=== PATIENT | female | born 1955 | race Caucasian/White ===

== ENCOUNTER → 2020-04-23 | Outpatient (CLI) | payer MEDICARE, MEDICAID ==
--- NOTE | 2020-04-26 11:03 | MRI ---
EXAM DESCRIPTION: Lumbar Spine w/o Contrast : Magnetic Resonance Imaging. CLINICAL HISTORY: BACK PAIN COMPARISON: Lumbar radiographs December 15. TECHNIQUE: Multiplanar, multiple standard sequences, non contrast MRI, lumbar spine. FINDINGS: L5-S1: The disc is well visualized on axial T2 series 501, image 3. Mild disc desiccation. Minimal posterior midline bulge with bilateral intraforaminal bulge more right than left with mild to moderate narrowing of the foramina. Hypertrophic changes in the facet joints and posterior flavum ligaments (canal elements). Mild narrowing of the canal. At least 50% compression of the anterior and posterior cortex of the T10 vertebral body with approximately 75% compression centrally. Hyperintense FLAIR signal throughout the vertebral body indicating marrow edema in recent injury which is also involving the right lamina and the left pedicle. 2 mm retropulsion of the inferior endplate. Question of hyperintense STIR signal in the right side of the cord at this level. No soft tissue or fluid mass in the canal at this level. Minimal soft tissue edema. Minimal desiccation of the T9-T10 disc which is migrating into the collapsed superior T10 endplate. No significant posterior bulging. Bilateral mild to moderate foraminal narrowing. T11 hyperintense STIR signal in the left pedicle laminar junction and in the base of the right pedicle extending into the base of the lamina. This is hypointense on T1 signal and hyperintense on T2. Consistent with contusion. Anterior and posterior vertebral body with similar focal subcortical signal. Posterior bulge of the T10-T11 disc abutting the cord. Superior migration of the disc into the concavity of the T10 inferior vertebral body endplate. Bilateral T10-T11 foramina are stenotic. T12 vertebral body with central compression deformity of at least 50% with hypointense signal in the anterior vertebral body on all sequences suggesting augmentation cement. Not seen in the disc space. Not present on the radiographs from December. Hyperintense T2 and STIR signal in the vertebral body surrounding the cement. Minimal retropulsion of the inferior endplate which is concave. Normal signal in the T12-L1 disc with posterior midline bulge but no cord compression. Significant narrowing of the bilateral foramina, but no nerve impingement. L4-L5: Disc desiccation and disc space loss more severe on left with irregular concavities and small Schmorl's nodes. Moderate endplate reactive changes in the midline and left. Disc osteophyte complex encroaching on the left foramen and left L4 nerve. Moderate narrowing of the right foramen. Hypertrophic changes in the canal elements with AP canal diameter 8.3 mm. L3-L4: Minimal disc desiccation with small concavities in the endplates. Posterior disc space loss and moderate endplate reactive changes. Hypertrophic changes in the canal elements. AP canal diameter 10 mm. Mild narrowing of the left foramen moderate narrowing of the right foramen. L2-L3: Disc desiccation with central calcification/gas. Superior and inferior Schmorl's nodes and moderate endplate reactive changes posterior. Posterior broad-based bulge. Hypertrophic changes in the canal elements. AP canal diameter 9 mm. Bilateral moderate foraminal narrowing. L1-L2: Disc normal signal and disc space preserved. Trace posterior and anterior bulging. Hypertrophic changes in the canal elements but no significant canal narrowing. Bilateral foramina are patent. T12- L3 levoscoliosis. Paravertebral soft tissues paravertebral muscle atrophy.. Distal cord otherwise normal signal except as previously described. Heterogeneous marrow signal in the remaining vertebral bodies and the posterior elements. IMPRESSION: 1. Multiple levels of disc desiccation, endplate changes, hypertrophy of the posterior flavum ligaments and facet joints and canal and foraminal narrowing. 2. Central compression of the T10 vertebral body not seen on the prior study. Also marrow edema reflecting injury in the right lamina and left pedicle. 10 mm retropulsion of the inferior endplate. Mild to moderate narrowing of the T9-T10 foramina with no significant posterior disc bulging. Marrow edema in the midline and left side cord indicating contusion. No cord compression or epidural fluid. Soft tissue edema. 3. Marrow edema indicating injury in the left T11 pedicle and at the base of the right pedicle. Bilateral stenosis of the T10-T11 foramina and moderate canal narrowing. Minimal posterior disc bulge. 4. At least 50% compression deformity of the T12 central and anterior vertebral body with augmentation. These changes not present on the prior study. Residual marrow edema in the posterior vertebral body but not in the posterior elements. T12-L1 disc desiccation and minimal bulging with moderate narrowing of the canal and foramina. 5. Disc osteophyte complex on the left at L4-L5 with moderate endplate reactive changes resulting in encroachment on the left L4 nerve and stenosis. Mild to moderate canal stenosis. Borderline mild central canal stenosis L3-L4 is multifactorial. Mild central canal stenosis multifactorial at L2-L3. Please see above FINDINGS for discussion at other levels. Electronically signed by: Luis Hodgson MD 04/26/2020 11:01 AM CDT
== END ==
LOC: MRI 10:51
PROVIDERS: ATTEND Neurological Surgery
DX: M51.35 Other intervertebral disc degeneration, thoracolumbar region (principal); M51.36 Other intervertebral disc degeneration, lumbar region; M48.54XA Collapsed vertebra, not elsewhere classified, thoracic region, initial encounter for fracture; M51.24 Other intervertebral disc displacement, thoracic region; M48.062 Spinal stenosis, lumbar region with neurogenic claudication; M48.04 Spinal stenosis, thoracic region; M51.84 Other intervertebral disc disorders, thoracic region; M46.96 Unspecified inflammatory spondylopathy, lumbar region; M24.28 Disorder of ligament, vertebrae; R60.9 Edema, unspecified; M25.78 Osteophyte, vertebrae

== ENCOUNTER 2020-06-24 10:51 | Emergency (ER) | payer MEDICARE, OTHER ==
--- NOTE | 2020-06-24 12:05 | RAD ---
EXAM DESCRIPTION: Chest,1 View CLINICAL HISTORY: myalgias, fever, left lower ant chest point pain FINDINGS/ IMPRESSION: Normal heart size. Atherosclerotic aorta No edema, infiltrates or effusions. Small linear band of opacity left lung base likely atelectasis or scar No pneumothorax. No acute bony abnormality Electronically signed by: Jerry Rodríguez MD 06/24/2020 12:03 PM CDT
--- NOTE | 2020-06-24 12:09 | CT ---
EXAM DESCRIPTION: CT head CLINICAL HISTORY: Headache. Fall injuries COMPARISON: None. TECHNIQUE: Noncontrast spiral CT of the brain. This exam was performed according to our departmental dose-optimization program, which includes automated exposure control, adjustment of the mA and/or kV according to patient size and/or use of iterative reconstruction technique FINDINGS: Severe white matter disease with decreased density in the bilateral cerebral hemispheres asymmetrically greater on the left. Cerebral and cerebellar volume loss with prominence of the cortical sulci and ventricular system. Atherosclerotic vascular calcifications in the vertebral arteries and cavernous carotid arteries No intracranial hemorrhage or mass lesion No calvarial or skull base injury IMPRESSION: Severe nonspecific white matter disease likely chronic microvascular ischemia. Senescent brain. No diagnostic acute traumatic brain injury CT is insensitive for early evaluation of acute stroke. If there is clinical concern for acute ischemia, an MRI may be considered. Electronically signed by: Jerry Rodríguez MD 06/24/2020 12:07 PM CDT
--- NOTE | 2020-06-24 12:17 | CT ---
TECHNIQUE: Spiral CT images were obtained of the cervical spine. Sagittal and coronal reconstructions were also performed. This exam was performed according to our departmental dose-optimization program, which includes automated exposure control, adjustment of the mA and/or kV according to patient size and/or use of iterative reconstruction technique. CLINICAL HISTORY PROVIDED: falls, headache COMPARISON: None available. FINDINGS: Alignment: Normal. No acute subluxation. Fracture: No acute fracture. Degenerative Changes: Multilevel degenerative changes are present. Prevertebral / Paraspinal Soft Tissues: Unremarkable. IMPRESSION: No acute fracture or subluxation. Electronically signed by: Dilip Kaur MD 06/24/2020 12:16 PM CDT
--- NOTE | 2020-06-24 13:15 | RAD ---
EXAM DESCRIPTION: Hip,Left 2 Views CLINICAL HISTORY: Left hip pain. Fall injury FINDINGS/ IMPRESSION: Nonspherical femoral head neck junction predisposing to femoroacetabular impingement. No fracture of the femur or pelvis. Rounded lucency in the medial femoral head neck junction measuring about 2 cm. Sclerotic periphery. Seen on both frog-leg and AP radiographs. Recommend CT for better characterization. This could be a degenerative cyst or other lytic lesion, possibly fibrous given the fairly well circumscribed sclerotic periphery No other lytic or blastic bony lesion Electronically signed by: Jerry Rodríguez MD 06/24/2020 1:13 PM CDT
--- NOTE | 2020-06-24 14:28 | CT ---
EXAM DESCRIPTION: CT left hip CLINICAL HISTORY: Fall injury. Hip pain. Abnormal radiograph with lucent bone lesion COMPARISON: None Available. TECHNIQUE: Spiral CT with multiplanar reformatted images. This exam was performed according to our departmental dose-optimization program, which includes automated exposure control, adjustment of the mA and/or kV according to patient size and/or use of iterative reconstruction technique. FINDINGS: The bone lesion on plain radiograph is an artifact/confluence of shadows accounting for a pseudolesion. No lytic or blastic bony lesion of the proximal femur or pelvis. No left proximal femoral or pelvic fracture. 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 No lytic or blastic proximal femoral lesion Electronically signed by: Jerry Rodríguez MD 06/24/2020 2:26 PM CDT
--- NOTE | 2020-06-24 14:37 | ED.PDOC ---
History of Present Illness - General Chief Complaint: Trauma Stated Complaint: head and bilateral flank pain, dizzyness Time Seen by Provider: 06/24/20 11:09 Source: patient Exam Limitations: no limitations - History of Present Illness Initial Comments: The patient is a 65-year-old female presented emergency room from the assisted after having had 2 falls in the last 24 hours. The patient is a very poor historian which is apparently not new. She does thinks that she hit her head on both falls. She does not think she lost consciousness but is uncertain. She is pleasant and cooperative. The only point that she is really hurting is reportedly her left hip. But she does have good active and passive range of motion of the hip. She reports discomfort diffusely across her body but there is no other point pain. She moves all extremities well otherwise. The patient does apparently normally get around with a wheelchair. Apparently both falls were when she was getting out of a wheelchair. The patient does exhibit poor focus. She does have some significant dementia. No fevers. No real runny nose or sore throat. No urinary symptoms. No palpable deformities. Timing/Duration: unsure Severity: moderate Improving Factors: immobilization Worsening Factors: nothing Associated Symptoms: malaise Allergies/Adverse Reactions: Allergies Penicillins Allergy (Verified 06/24/20 11:10) Sulfa Antibiotics Allergy (Verified 06/24/20 11:10) Home Medications: Ambulatory Orders Acetaminophen [Tylenol] 325 mg PO PRN 06/24/20 Acetaminophen [Tylenol] 500 mg PO PRN 06/24/20 Buspirone HCl [Buspirone Hydrochloride] 10 mg PO TID 06/24/20 Cetirizine HCl [All Day Allergy] 10 mg PO DAILY 06/24/20 Furosemide 40 mg PO DAILY 06/24/20 Furosemide [Lasix] 20 mg PO DAILY 06/24/20 Gabapentin 800 mg PO 06/24/20 Hydroxychloroquine Sulfate [Plaquenil] 200 mg PO DAILY 06/24/20 Lidocaine (Anorectal) [Lidocaine] 5 % EX 06/24/20 Lisinopril 10 mg PO DAILY 06/24/20 Loperamide HCl 2 mg PO DAILY 06/24/20 Magnesium 400 mg PO 06/24/20 Montelukast Sodium 5 mg PO BID 06/24/20 Pantoprazole Sodium 40 mg PO DAILY 06/24/20 Polyethylene Glycol 3350 [Polyethylene Glycol] 17 gm PO DAILY 06/24/20 Potassium Chloride [K-Tab] 20 meq PO DAILY 06/24/20 Promethazine HCl 25 mg PO DAILY 06/24/20 Quetiapine Fumarate 200 mg PO DAILY 06/24/20 Ropinirole Hydrochloride [Ropinirole HCl] 2 mg PO DAILY 06/24/20 Sennosides [Cvs Senna] 8.6 mg PO DAILY 06/24/20 Spironolactone 25 mg PO DAILY 06/24/20 Thermotabs 2 tablet PO DAILY 06/24/20 Tramadol HCl 50 mg PO PRN 06/24/20 diphenhydrAMINE HCL [Benadryl] 25 mg PO DAILY 06/24/20 tiZANidine [Zanaflex] 4 mg PO DAILY 06/24/20 Review of Systems - Review of Systems Constitutional: States: malaise EENTM: States: no symptoms reported Respiratory: States: no symptoms reported Cardiology: States: no symptoms reported Gastrointestinal/Abdominal: States: no symptoms reported Genitourinary: States: no symptoms reported Musculoskeletal: States: see HPI Skin: States: no symptoms reported Neurological: States: headache Endocrine: States: no symptoms reported All other Systems: No Change from Baseline Past Medical History (General) - Patient Medical History Hx of COPD: Yes Hx Congestive Heart Failure: Yes Hx Diabetes: No Hx Gastroesophageal Reflux: Yes - Vaccination History Hx Influenza Vaccination: Yes Hx Pneumococcal Vaccination: Yes - Social History Hx Tobacco Use: No Hx Alcohol Use: No - Activities of Daily Living Correction/Assisted Living (if applicable):: [facility] - Female History Patient is a Female of Child Bearing Age (10 -59 yrs old): No Family Medical History - Family History Mother Family History: Unknown Living Status: Unknown Physical Exam - Physical Exam General Appearance: Alert, No apparent distress Eye Exam: bilateral normal Ears, Nose, Throat: hearing grossly normal, normal pharynx Neck: full range of motion, supple Respiratory: lungs clear, normal breath sounds, no respiratory distress, no accessory muscle use Cardiovascular/Chest: normal peripheral pulses, regular rate, rhythm, no edema Peripheral Pulses: radial,right: 2+, radial,left: 2+ Gastrointestinal/Abdominal: non tender - Obese, soft Rectal Exam: deferred Back Exam: no CVA tenderness, no vertebral tenderness Extremity: normal range of motion, pedal edema - Trace edema bilaterally, other - See history of present illness 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 Head CT and CT scan of the cervical spine do show numerous chronic changes but no acute pathology. No evidence of acute stroke hemorrhage. No evidence of acute trauma. Chest x-ray shows no acute pathology. X-ray of the left hip where she is having discomfort shows some mild irregularity of the femoral head however this is not shown to be true on the CT scan of the hip. She does have degenerative changes however. Coronavirus test is negative. Laboratory Results - last 24 hr 06/24/20 06/24/20 06/24/20 11:20 11: 11:20 WBC 10.5 RBC 4.47 Hgb 14.2 Hct 41.5 MCV 92.8 MCH 31.8 H MCHC 34.3 RDW 14.1 Plt Count 230 MPV 8.4 Absolute Neuts (auto) 3.60 Absolute Lymphs (auto) 5.30 H Absolute Monos (auto) 1.50 H Absolute Eos (auto) 0.10 Absolute Basos (auto) 0.10 Neutrophils % 33.9 L Lymphocytes % 50.2 H Monocytes % 13.9 H Eosinophils % 1.1 Basophils % 0.9 Sodium 134 L Potassium 4.3 Chloride 98 L Carbon Dioxide 28 Anion Gap 12.3 BUN 12 Creatinine 0.65 BUN/Creatinine Ratio 18.5 Random Glucose 95 Serum Osmolality 267.8 L Calcium 9.1 Magnesium 1.8 Total Bilirubin 0.5 AST 25 ALT 16 Alkaline Phosphatase 68 Creatine Kinase 52 CK-MB (CK-2) 3.3 CK-MB (CK-2) % Not Reportable Troponin I < 0.02 B-Natriuretic Peptide 39.9 Serum Total Protein 6.8 Albumin 3.3 Globulin 3.5 Albumin/Globulin Ratio 0.9 L TSH 1.51 Urine Color Urine Appearance Urine pH Ur Specific [place] Urine Protein Urine Glucose (UA) Urine Ketones Urine Blood Urine Nitrite Urine Bilirubin Urine Urobilinogen Ur Leukocyte Esterase Urine RBC Urine WBC Ur Epithelial Cells Urine Bacteria 06/24/20 12:34 WBC RBC Hgb Hct MCV MCH MCHC RDW Plt Count MPV Absolute Neuts (auto) Absolute Lymphs (auto) Absolute Monos (auto) Absolute Eos (auto) Absolute Basos (auto) Neutrophils % Lymphocytes % Monocytes % Eosinophils % Basophils % Sodium Potassium Chloride Carbon Dioxide Anion Gap BUN Creatinine BUN/Creatinine Ratio Random Glucose Serum Osmolality Calcium Magnesium Total Bilirubin AST ALT Alkaline Phosphatase Creatine Kinase CK-MB (CK-2) CK-MB (CK-2) % Troponin I B-Natriuretic Peptide Serum Total Protein Albumin Globulin Albumin/Globulin Ratio TSH Urine Color Yellow Urine Appearance Clear Urine pH 7.0 Ur Specific [place] 1.020 Urine Protein Negative Urine Glucose (UA) Negative Urine Ketones Negative Urine Blood Negative Urine Nitrite Negative Urine Bilirubin Negative Urine Urobilinogen 0.2 Ur Leukocyte Esterase Negative Urine RBC 0 Urine WBC 0 Ur Epithelial Cells 0-1 Urine Bacteria 0 Progress - Progress Progress: 06/24/20 14:39 Vital Signs - 24 hr 06/24/20 06/24/20 10:59 11:10 Temperature 98.0 F Pulse Rate [ 68 68 Right Radial] Respiratory 18 Rate Blood Pressure 154/76 [Left Arm] O2 Sat by Pulse 99 Oximetry Assessment and plan: The patient is a 65-year-old female sent from the assisted secondary to 2 falls while trying to get up from her wheelchair over the last day. The patient does have some obvious dementia and does need to have some fall precautions taken obviously. Imaging of the head, cervical spine and left hip show no evidence of any acute pathology. It is possible the patient may have sustained a mild concussion with multiple falls. Laboratory work is reassuring. No other acute pathology has been found at this time. ER warnings are given. Follow-up with the facility doctor in the next couple of days. cyrus moya [id number] - EKG/XRAY/CT CT Ordered: Yes Departure - Departure Clinical Impression: Fall at assisted Qualifiers: Encounter type: initial encounter Qualified Code(s): W19.XXXA - Unspecified fall, initial encounter; Y92.129 - Unspecified place in assisted as the place of occurrence of the external cause Disposition: Discharge to SNF Condition: Fair Departure Forms: ED Discharge - Pt. Copy, Patient Portal Self Enrollment Diet: regular diet Activity: other Referrals: Xavi Dobson MD [Primary Care Provider] - 1-2 Weeks Home Medications: Ambulatory Orders Acetaminophen [Tylenol] 325 mg PO PRN 06/24/20 Acetaminophen [Tylenol] 500 mg PO PRN 06/24/20 Buspirone HCl [Buspirone Hydrochloride] 10 mg PO TID 06/24/20 Cetirizine HCl [All Day Allergy] 10 mg PO DAILY 06/24/20 Furosemide 40 mg PO DAILY 06/24/20 Furosemide [Lasix] 20 mg PO DAILY 06/24/20 Gabapentin 800 mg PO 06/24/20 Hydroxychloroquine Sulfate [Plaquenil] 200 mg PO DAILY 06/24/20 Lidocaine (Anorectal) [Lidocaine] 5 % EX 06/24/20 Lisinopril 10 mg PO DAILY 06/24/20 Loperamide HCl 2 mg PO DAILY 06/24/20 Magnesium 400 mg PO 06/24/20 Montelukast Sodium 5 mg PO BID 06/24/20 Pantoprazole Sodium 40 mg PO DAILY 06/24/20 Polyethylene Glycol 3350 [Polyethylene Glycol] 17 gm PO DAILY 06/24/20 Potassium Chloride [K-Tab] 20 meq PO DAILY 06/24/20 Promethazine HCl 25 mg PO DAILY 06/24/20 Quetiapine Fumarate 200 mg PO DAILY 06/24/20 Ropinirole Hydrochloride [Ropinirole HCl] 2 mg PO DAILY 06/24/20 Sennosides [Cvs Senna] 8.6 mg PO DAILY 06/24/20 Spironolactone 25 mg PO DAILY 06/24/20 Thermotabs 2 tablet PO DAILY 06/24/20 Tramadol HCl 50 mg PO PRN 06/24/20 diphenhydrAMINE HCL [Benadryl] 25 mg PO DAILY 06/24/20 tiZANidine [Zanaflex] 4 mg PO DAILY 06/24/20 Additional Instructions: The patient is a 65-year-old female sent from the assisted secondary to 2 falls while trying to get up from her wheelchair over the last day. The patient does have some obvious dementia and does need to have some fall precautions taken obviously. Imaging of the head, cervical spine and left hip show no evidence of any acute pathology. It is possible the patient may have sustained a mild concussion with multiple falls. Laboratory work is reassuring. No other acute pathology has been found at this time. ER warnings are given. Follow-up with the facility doctor in the next couple of days.
[2020-06-24 16:06] VITALS: BP 166/79; TEMP 97.4; O2SAT 96
== END 2020-06-24 15:25 ==
LOC: ER 10:51
DX: M25.552 Pain in left hip (principal); J44.9 Chronic obstructive pulmonary disease, unspecified; I50.9 Heart failure, unspecified; K21.9 Gastro-esophageal reflux disease without esophagitis; F03.90 Unspecified dementia, unspecified severity, without behavioral disturbance, psychotic disturbance, mood disturbance, and anxiety; Z88.0 Allergy status to penicillin; Z88.2 Allergy status to sulfonamides; M46.1 Sacroiliitis, not elsewhere classified; Z79.899 Other long term (current) drug therapy; R93.6 Abnormal findings on diagnostic imaging of limbs; Z20.828 Contact with and (suspected) exposure to other viral communicable diseases; W05.0XXA Fall from non-moving wheelchair, initial encounter; Z91.81 History of falling; Y92.129 Unspecified place in nursing home as the place of occurrence of the external cause